=== PATIENT | male | born 1990 | race Asian ===

== ENCOUNTER 2022-04-01 11:48 | Emergency (ER) | payer OTHER, SELFPAY ==
[2022-04-01 12:26] VITALS: BP 113/74; PULSE 87; RESP 16; TEMP 36.1; O2SAT 99; BMI 21.7
[2022-04-01 13:16] LABS: Appearance Urine UA CLEAR; Bilirubin Urine UA NEGATIVE (NEGATIVE); Color Urine UA YELLOW; Glucose Urine UA NEGATIVE (Negative); Ketones Urine UA NEGATIVE (NEGATIVE); Leukocyte Esterase Urine UA NEGATIVE (NEGATIVE); Nitrite Urine UA NEGATIVE (Negative); Occult Blood Urine UA 2+ (Negative); Protein Urine UA NEGATIVE (Negative); Specific Gravity Urine UA 1.015 (1.000-1.035); Urobilinogen Urine UA 0.2 E.U./dL (0.2)
[2022-04-01 13:28] LABS: Amorphous Sediment Urine 1+; Bacteria Urine None Seen; Culture Indicated Urine Cult Not Indicated; RBC Urine 1-5/HPF (0-5/HPF); Squamous Epithelial Cell Urine 1-5 /HPF (0-5/HPF); WBC Urine None Seen (0-5/HPF)
--- NOTE | 2022-04-01 14:51 | ED_ITS ---
HPI - Abdominal Pain <Darryl Thornton PA-C - Last Filed: 04/01/22 19:37> General Chief Complaint: Abdominal Pain Stated Complaint: Abdominal pains,gas,lack of appetite Time Seen by Provider: 04/01/22 13:47 Source: patient Mode of arrival: Ambulatory History of Present Illness HPI narrative: Patient is a 31-year-old male who presents to the emergency room today with complaint of abdominal pain and nausea started last night. Denies diarrhea blood in stool or vomiting. Also admits to having a 3-year-old child who was diagnosed with C difficile about 2 days ago. States he is feeling a lot better now and has no other concerns. Related Data Previous Rx's Medication Instructions Recorded vancomycin 125 mg capsule 125 mg PO QID #40 caps 04/01/22 vancomycin 125 mg capsule 125 mg PO QID #40 caps 04/01/22 Allergies Allergy/AdvReac Type Severity Reaction Status Date / Time No Known Drug Allergies Allergy Verified 04/01/22 12:47 Review of Systems <Darryl Thornton PA-C - Last Filed: 04/01/22 19:37> Review of Systems Narrative: R.O.S.: General: No fever, chills or fatigue. Cardiovascular: No chest pain or palpitations Respiratory: No S.O.B. HEENT: No congestion, ear pain, rhinorrhea, sore throat or tinnitus Gastrointestinal: Abdominal pain and nausea without vomiting : Diarrhea and abdominal pain Skin: No rash or associated abnormalities Musculoskeletal: No pain in muscles or joints, no limitation of range of motion, no paresthesia or numbness. ?? Neurological: Awake, alert and in not apparent distress. No Headaches, changes in vision or other related neurological concerns. Patient History <Darryl Thornton PA-C - Last Filed: 04/01/22 19:37> Social History Smoking Status: Never smoker Smoking Status: Never smoker Substance Use Type: does not use Exam <KRYSTIN Kaur Last Filed: 04/01/22 19:37> Narrative Exam Narrative: Physical Exam: ? General: normal appearance, well developed, well nourished, alert, and awake. Not in acute distress. ? Head: Normocephalic, no lesions. Chest: Lungs CTAB, no rales, rhonchi or wheezes. ?? Heart: RRR, no murmurs, rubs or gallops. Eyes: PERRLA, EOM's full, conjunctivae clear. ? Neuro: Physiological, no localizing findings, CN3-12 intact. ?? Extremities: Warm, well perfused, FROM, no deformities, no edema. ?? Skin: Normal, no rashes, no lesions noted. ?? PSYCHIATRIC: The mood is good, no blunted affect. Speech is clear. Thought process is linear, thought content is appropriate. The voice is without significant inflection. Gastrointestinal: Soft; NT; ND; Pos BS with Neg. rebound tenderness. No scars or major deformities noted on Visual Inspection. Initial Vital Signs Initial Vital Signs: Vital Signs Temperature 97.0 F L 04/01/22 12:26 Pulse Rate 87 04/01/22 12:26 Respiratory Rate 16 04/01/22 12:26 Blood Pressure 113/74 04/01/22 12:26 Pulse Oximetry 99 04/01/22 12:26 Oxygen Delivery Method 04/01/22 12:26 <DO Emeka Wagner Last Filed: 04/06/22 07:10> Initial Vital Signs Initial Vital Signs: Vital Signs Temperature 97.0 F L 04/01/22 12:26 Pulse Rate 87 04/01/22 12:26 Respiratory Rate 16 04/01/22 12:26 Blood Pressure 113/74 04/01/22 12:26 Pulse Oximetry 99 04/01/22 12:26 Oxygen Delivery Method 04/01/22 12:26 Course <Darryl Thornton PA-C - Last Filed: 04/01/22 19:37> Orders Ordered: ED Orders 04/01/22 12:40 UA Complete [Urinalysis and Microscopic] Stat 04/01/22 13:16 C Diff [Clostridium Difficile Tox PCR] Stat Vital Signs Vital signs: Vital Signs - 8 hr 04/01/22 12:26 04/01/22 16:26 Temperature 97.0 F L Pulse Rate 87 66 Respiratory Rate 16 18 Blood Pressure 113/74 114/62 Pulse Oximetry 99 99 Oxygen Delivery Method Room Air Room Air <DO Emeka Wagner Last Filed: 04/06/22 07:10> Orders Ordered: ED Orders 04/01/22 12:40 UA Complete [Urinalysis and Microscopic] Stat 04/01/22 13:16 C Diff [Clostridium Difficile Tox PCR] Stat Vital Signs Vital signs: Vital Signs - 8 hr 04/01/22 12:26 04/01/22 16:26 Temperature 97.0 F L Pulse Rate 87 66 Respiratory Rate 16 18 Blood Pressure 113/74 114/62 Pulse Oximetry 99 99 Oxygen Delivery Method Room Air Room Air MDM - Abdominal Pain <Darryl Thornton PA-C - Last Filed: 04/01/22 19:37> Lab Data Labs: Lab Results 04/01/22 04/01/22 Range/Units 12:40 13:16 Urine Color Yellow Urine Appearance Clear Urine pH 5.0 (4.5-8.0) Ur Specific [place] 1.015 (1.000-1.035) Urine Protein Negative (Negative) Urine Glucose (UA) Negative (Negative) g/dL Urine Ketones Negative (NEGATIVE) Urine Occult Blood 2+ H (Negative) Urine Nitrate Negative (Negative) Urine Bilirubin Negative (NEGATIVE) Urine Urobilinogen 0.2 (0.2) E.U./dL Ur Leukocyte Esterase Negative (NEGATIVE) Urine RBC 1-5/hpf (0-5/HPF) Urine WBC None seen (0-5/HPF) Ur Squamous Epith Cells 1-5 /hpf (0-5/HPF) Amorphous Sediment 1+ Urine Bacteria None seen (None) Ur Culture Indicated? Cult not indicated C. difficile Tox (PCR) Negative for c. diff (Negative) MDM Narrative Medical decision making narrative: Patient has complaint of abdominal pain and diarrhea started last night. Also has a child that was positive for C diff. C diff PCR ordered and negative. Given the patient's symptoms and having a child at home positive for C diff the plan is to treat the patient for C difficile. <Lita Raphael DO - Last Filed: 04/06/22 07:10> Lab Data Labs: Lab Results 04/01/22 04/01/22 Range/Units 12:40 13:16 Urine Color Yellow Urine Appearance Clear Urine pH 5.0 (4.5-8.0) Ur Specific [place] 1.015 (1.000-1.035) Urine Protein Negative (Negative) Urine Glucose (UA) Negative (Negative) g/dL Urine Ketones Negative (NEGATIVE) Urine Occult Blood 2+ H (Negative) Urine Nitrate Negative (Negative) Urine Bilirubin Negative (NEGATIVE) Urine Urobilinogen 0.2 (0.2) E.U./dL Ur Leukocyte Esterase Negative (NEGATIVE) Urine RBC 1-5/hpf (0-5/HPF) Urine WBC None seen (0-5/HPF) Ur Squamous Epith Cells 1-5 /hpf (0-5/HPF) Amorphous Sediment 1+ Urine Bacteria None seen (None) Ur Culture Indicated? Cult not indicated C. difficile Tox (PCR) Negative for c. diff (Negative) Discharge Plan Departure Patient Disposition: Home Clinical Impression: Abdominal pain Instructions: DI for Abdominal Pain-Adult, DI for Nausea -- Adult, DI for Clostridioides difficile Infection Activity Restrictions/Additional Instructions: *You have been diagnosed with nausea and abdominal pain secondary to possible C difficile infection. I have ordered antibiotics for possible C difficile infection. I advised her to take the antibiotics as ordered return to the emergency room if any emergent concerns arose. [ ] *What to do: *Please continue to take your regular medications as directed. [ ] New medication prescriptions sent to your pharmacy: [ ] [x] New medication written as a paper prescription [ ] No new medications given *Please follow up with your primary care provider in 2-3 days, call for an appointment. Let them know you were seen in the Emergency Department and that we ask that you be seen in follow up. We will electronically transmit a record of today's note if your PCP is in our system *If you do not have a primary care provider please contact the [facility] Resource line at [phone]. They will ask some questions about your medical history and help get you set up with a doctor in the community. *Return to Emergency Department if you should have any new, worsening or concerning symptoms, such as [fever greater than 101 F, shaking chills, worsening pain, persistent vomiting or other bothersome symptoms] Prescriptions: New vancomycin 125 mg capsule 125 mg PO QID Qty: 40 0RF vancomycin 125 mg capsule 125 mg PO QID Qty: 40 0RF Visit Report Forms: Patient Portal/API <Lita Raphael DO - Last Filed: 04/06/22 07:10> Cosign ED Attending Maki Attestation: I was immediately available in the department for consultation. Documentation has been reviewed. I agree with assessment and plan.
[2022-04-01 14:59] LABS: Clostridium Difficile Tox PCR Negative for C. diff (Negative)
[2022-04-01 16:26] VITALS: BP 114/62; PULSE 66; RESP 18; O2SAT 99
== END 2022-04-01 16:27 | disposition home or self-care (01) ==
PROVIDERS: Emergency Medicine; Emergency Provider Physician Assistant
DX: A04.72 Enterocolitis due to Clostridium difficile, not specified as recurrent (principal); R10.9 Unspecified abdominal pain; R11.0 Nausea
CPT/HCPCS: 81001; 87493; 99281; 99282